=== PATIENT | male | born 1940 | race Caucasian/White ===

== ENCOUNTER 2017-07-17 22:25 | Emergency (ER) | payer OTHER, MEDICARE ==
[2017-07-17 23:40] LABS: BASOPHIL % 0.4 % (0-2); PLATELET COUNT 240 x10^3mcL (130-400)
[2017-07-17 23:42] LABS: RED CELL DISTRIBUTION WIDTH 18.8 % (11.5-14.5)
[2017-07-17 23:45] LABS: CALCIUM 8.6 mg/dL (8.5-10.1); CARBON DIOXIDE 26.2 mmol/L (21-32); CHLORIDE SERUM 105 mmol/L (98-107); CREATININE SERUM 1.1 mg/dL (0.7-1.3); GLUCOSE SERUM 133 mg/dL (74-106); SODIUM SERUM 141 mmol/L (136-145)
[2017-07-17 23:51] LABS: ALKALINE PHOSPHATASE 67 U/L (46-116); ALT/SGPT 44 U/L (16-63); AST/SGOT 16 U/L (15-37); BILIRUBIN TOTAL 0.54 mg/dL (0.20-1.00); TOTAL PROTEIN, SERUM 6.2 g/dL (6.4-8.2)
[2017-07-17 23:58] LABS: ALBUMIN 3.1 g/dL (3.4-5.0)
[2017-07-18 04:32] VITALS: BP 149/92
== END 2017-07-18 01:43 | disposition home or self-care (01) ==
LOC: ED 22:25
PROVIDERS: Emergency Medicine
DX: G40.409 Other generalized epilepsy and epileptic syndromes, not intractable, without status epilepticus (principal); E78.5 Hyperlipidemia, unspecified; I11.0 Hypertensive heart disease with heart failure; I50.9 Heart failure, unspecified; I25.10 Atherosclerotic heart disease of native coronary artery without angina pectoris
CPT/HCPCS: J2060